=== PATIENT | male | born 1985 | race Caucasian/White ===

== ENCOUNTER 2023-05-31 20:27 | Emergency (ER) | payer BC, SELFPAY ==
--- NOTE | ~2023-05-31 | XR_ITS ---
EXAMINATION: XR chest 1V portable DATE: 05/31/2023 22:01 INDICATION: Cough. Shortness of breath. TECHNIQUE: A single frontal view of the chest was obtained. COMPARISON: None. FINDINGS: A calcified right lung nodule is consistent with old granulomatous disease. No pleural effu yandel or pneumothorax. The heart size is normal. IMPRESSION: 1. No acute cardiopulmonary disease. Reviewed, dictated and finalized at location E.
[2023-05-31 20:31] VITALS: BP 126/77; PULSE 64; RESP 15; TEMP 36.3; O2SAT 100
--- NOTE | 2023-05-31 22:47 | ECG_ITS ---
Measurements Intervals [place] Rate: 46 P: 45 TN: 189 QRS: 38 QRSD: 102 T: 7 QT: 447 QTc: 393 Interpretive Statements SINUS BRADYCARDIA WITH MARKED SINUS ARRHYTHMIA BORDERLINE T WAVE ABNORMALITY- INFERIOR LEADS ABNORMAL ECG NO PREVIOUS ECG AVAILABLE FOR COMPARISON Electronically Signed On 06-01-2023 6:45:43 CDT by Marvel Rosenberg D.O.
--- NOTE | 2023-05-31 23:27 | ED.SOB ---
HPI - SOB/Dyspnea General Chief Complaint: Shortness of Breath/Dyspnea Stated Complaint: i don't feel like I can breath Time Seen by Provider: 05/31/23 22:08 History of Present Illness HPI Narrative: Patient presents here feeling like he is having difficulty breathing with chest pressure, he is healthy without any medical problems, he had gone to urgent care recently and took a course of prednisone with improvement of symptoms but once he stopped taking the prednisone he felt the symptoms come back. No focal numbness or weakness anywhere, no chills. Related Data Home Medications Medication Instructions Recorded Confirmed famotidine 20 mg tablet 20 mg PO BID 02/04/20 03/14/21 Allergies Allergy/AdvReac Type Severity Reaction Status Date / Time No Known Allergies Allergy Verified 03/14/21 15:34 Review of Systems Review of Systems: CONST: No fever. HEENT: No sore throat C/V: Chest tightness RESP: Sensation of shortness of breath GI: No abdominal pain : No dysuria. M/S: No joint pain. SKIN: No rash. NEURO: [No headache or focal numbness or weakness] PSYCH: [No depression] [facility] Family History Family History Grandparent Diabetes mellitus, Onset Age: 75 Family history of chronic obstructive pulmonary disease Mother Hypertension Father Patient's father is in good health Social History Social History Smoking status: Current every day smoker Alcohol intake: current Exam Narrative: EXAMINATION OF ORGAN SYSTEMS/BODY AREAS: Constitutional: Vital signs per nursing GENERAL:[No acute distress, non-toxic appearing.] Resting comfortably in bed HEAD: Normal with no signs of head trauma. EYES: EOMI, conjunctiva normal ENT: Hearing grossly intact LUNGS: Nonlabored breathing. Clear to auscultation bilaterally HEART: [Regular rate and rhythm] ABD: [Soft], [nontender to palpation] EXT: Normal range of motion, no lower extremity edema or tenderness, ambulating with normal steady gait SKIN: [No rashes or lesions.] NEURO: [Alert and oriented x 3. No gross focal sensory or strength deficits.] PSYCH: Normal affect Course Vital Signs Vital signs: Vital Signs Temperature 97.4 F L 05/31/23 20:31 Pulse Rate 64 05/31/23 20:31 Respiratory Rate 15 05/31/23 20:31 Blood Pressure 126/77 05/31/23 20:31 Pulse Oximetry 100 05/31/23 20:31 Oxygen Delivery Room Air 05/31/23 20:31 Temperature 97.4 F L 05/31/23 20:31 Pulse Rate 74 06/01/23 00:02 Respiratory Rate 14 06/01/23 00:02 Blood Pressure 122/89 06/01/23 00:02 Pulse Oximetry 99 06/01/23 00:02 Oxygen Delivery Room Air 05/31/23 20:31 MDM - SOB/Dyspnea MDM Narrative Medical decision making narrative: ED COURSE AND MEDICAL DECISION MAKINM presenting with chest pain. EKG done in triage negative for acute ischemic changes. Cardiac workup is initiated. EKG: Performed in triage and interpreted by me. Sinus garret. Rate 46. Normal axis. VT normal. QRS duration normal. QTc normal. No pathologic Q waves. No ST segment elevation or depression to suggest acute ischemia. Inverted T waves in lead III which I did note was similar to EKG from 2017. No EKG changes no risk factors making ACS unlikely. Negative PERC making PE unlikely. Presentation not consistent with dissection or aneurysm without radiation of pain or pulse deficits. CXR reviewed independently and interpreted independently by myself, does not show any acute abnormality including no obvious pneumothorax there is a small calcification. Negative for mediastinal widening. No cardiomegaly or JVD to suggest pericardial effusion/tamponade. On repeat evaluation just prior to discharge, the patient is no acute distress. I had a long discussion with the patient and with shared decision making, [he] is comfortable with outpatient management. [H
[2023-06-01 00:02] VITALS: BP 122/89; PULSE 74; RESP 14; O2SAT 99
== END 2023-06-01 00:03 | disposition home or self-care (01) ==
PROVIDERS: Emergency Provider Emergency Medicine
DX: R07.9 Chest pain, unspecified (principal); F17.200 Nicotine dependence, unspecified, uncomplicated
CPT/HCPCS: 71045; 93005; 99283